=== PATIENT | female | born 1955 | race Caucasian/White ===

== ENCOUNTER → 2016-07-11 | Outpatient (REF) | payer BC ==
[~2016-07-11] MED LIST: CALCIUM PO; CENT1TAB PO; COQ-200C PO; COUM2.5T11 PO; FLON1SPR; IBUP600T26 PO; LISI10TA4 PO; LORT5TAB PO; MELA0.02 PO; SERT-138 PO; SIMV5TAB4 PO; SLOW MAG PO; TUMERIC/CURCUMIN PO; TYLE325T5 PO; VITA200015 PO; VITA500C10 PO; [UNRECOGNIZED DRUG - OTHER] PO
[2016-07-11 17:45] LABS: BACTERIA, URINE NONE SEEN; HYALINE CAST, URINE NONE SEEN /lpf (0-1); MICROSCOPIC EXAM PERFORMED; SQUAMOUS EPITHELIAL CELL URINE SMALL AMOUNT /hpf (SMALL AMT); WBC, URINE 0-1 /hpf (0-3)
== END ==
LOC: M LAB REF 16:10
PROVIDERS: ATTEND Family Medicine
DX: R31.9 Hematuria, unspecified (principal)

== ENCOUNTER → 2017-02-01 | Outpatient (CLI) | payer BC ==
[~2017-02-01] MED LIST changes: +CONRAY-43 43% 50ML VIAL (Q9960) As Ordered ONE; -COUM2.5T11 PO; +COUM2.5T17 PO; +IBUP-1022 PO; -IBUP600T26 PO; +LIDOCAINE 1% MDV 20ML VIAL As Ordered ONE; -MELA0.02 PO; +MELA3TAB49 PO; +methylPREDNISolone SUSP 40 MG/ML (DEPO-medrol) VIAL (J1030) As Ordered ONE
--- NOTE | 2017-02-01 19:25 | REP ---
Right hip injection The procedure was performed under the direct supervision of Dr. Becerra. The benefits and risks including but not limited to pain infection and bleeding and anaphylaxis were explained to the patient and informed consent was obtained. The right femoral neck was localized using fluoroscopic guidance. The skin was prepped and draped in a sterile fashion. 1% lidocaine was used as a local anesthetic. Using fluoroscopic guidance a 22-gauge spinal needle was inserted and advanced to the femoral neck. 0.5 ml of Conray 43 was injected to verify placement. 5 ml of a solution containing 3 ml of 1% Xylocaine and 2 ml of Depo Medrol 40 mg was injected. The needle was then removed. The patient tolerated the procedure well and there were no immediate complications. 1 seconds of fluoro time was utilized for this procedure. Reviewed by RICARDO Davila 02/01/2017 05:26 PSigned by Ruiz Becerra MD 02/01/2017 07:15 P
== END ==
LOC: M RADPRO 09:36
PROVIDERS: ATTEND Physician Assistant
DX: M16.11 Unilateral primary osteoarthritis, right hip (principal)
CPT/HCPCS: 20610; 77002; J1030; Q9960

== ENCOUNTER → 2017-04-23 | Outpatient (CLI) | payer BC ==
[2017-04-23 10:17] LABS: BASO % 0.7 % (0.0-1.0); HEMATOCRIT 39.3 % (36.0-47.0); IMMATURE GRANULOCYTE % 0.2 % (0-0); LYMPH # 1.3 10^3/uL (1.5-4.5); LYMPH % 29.1 % (24.0-44.0); MEAN CORPUSCULAR HEMOGLOBIN 31.2 pg (27.0-33.0); MEAN CORPUSCULAR HGB CONC 33.1 g/dl (32.0-36.5); MEAN CORPUSCULAR VOLUME 94.2 fl (80.0-96.0); MONO # 0.4 10^3/uL (0.0-0.8); MONO % 8.8 % (0.0-5.0); NEUTROPHILS # 2.7 10^3/uL (1.8-7.7); NEUTROPHILS % 61.2 % (36.0-66.0); PLATELET COUNT, AUTOMATED 290 10^3/uL (150-450); RED BLOOD COUNT 4.17 10^6/uL (4.00-5.40); RED CELL DISTRIBUTION WIDTH 13.2 % (11.5-14.5); WHITE BLOOD COUNT 4.3 10^3/uL (4.0-10.0)
[2017-04-23 10:46] LABS: ALBUMIN/GLOBULIN RATIO 1.43 (1.00-1.93); ALKALINE PHOSPHATASE 82 U/L (45-117); ALT/SGPT 14 U/L (12-78); ANION GAP 8 MEQ/L (8-16); AST/SGOT 12 U/L (7-37); BILIRUBIN,TOTAL 0.4 MG/DL (0.2-1.0); BLOOD UREA NITROGEN 18 MG/DL (7-18); CALCIUM LEVEL 8.6 MG/DL (8.8-10.2); CARBON DIOXIDE LEVEL 29 MEQ/L (21-32); CHLORIDE LEVEL 104 MEQ/L (98-107); CHOLESTEROL LEVEL 233 MG/DL (<200); CHOLESTEROL RISK RATIO 2.678 (<5); CREATININE FOR GFR 0.65 MG/DL (0.55-1.02); FREE T4 0.85 NG/DL (0.76-1.46); GLOMERULAR FILTRATION RATE > 60.0 (>45); GLUCOSE, FASTING 94 MG/DL (80-110); HDL CHOLESTEROL 87 MG/DL (>40); NON-HDL-C 146 MG/DL; POTASSIUM SERUM 4.2 MEQ/L (3.5-5.1); SODIUM LEVEL 141 MEQ/L (136-145); TOTAL PROTEIN 6.8 GM/DL (6.4-8.2); TRIGLYCERIDES LEVEL 80 MG/DL (<150)
== END ==
LOC: M LAB 09:25
DX: E78.2 Mixed hyperlipidemia (principal)
CPT/HCPCS: 84443

== ENCOUNTER → 2017-07-22 | Outpatient (REF) | payer BC ==
[2017-07-22 13:49] LABS: CHOLESTEROL LEVEL 192 MG/DL (<200); CHOLESTEROL RISK RATIO 2.341 (<5); HDL CHOLESTEROL 82 MG/DL (>40); NON-HDL-C 110 MG/DL; TRIGLYCERIDES LEVEL 50 MG/DL (<150)
== END ==
LOC: M LABNEURO 09:33
DX: E78.2 Mixed hyperlipidemia (principal)
CPT/HCPCS: 80061

== ENCOUNTER → 2018-02-17 | Outpatient (REF) | payer BC ==
[2018-02-17 12:39] LABS: BASO % 0.9 % (0.0-1.0); HEMOGLOBIN 12.4 g/dl (12.0-15.5); LYMPH # 1.2 10^3/uL (1.5-4.5); LYMPH % 26.4 % (24.0-44.0); MEAN CORPUSCULAR HEMOGLOBIN 31.1 pg (27.0-33.0); MEAN CORPUSCULAR HGB CONC 32.6 g/dl (32.0-36.5); MEAN CORPUSCULAR VOLUME 95.2 fl (80.0-96.0); MONO # 0.4 10^3/uL (0.0-0.8); MONO % 9.1 % (0.0-5.0); NEUTROPHILS # 2.9 10^3/uL (1.8-7.7); NEUTROPHILS % 63.6 % (36.0-66.0); PLATELET COUNT, AUTOMATED 274 10^3/uL (150-450); RED BLOOD COUNT 3.99 10^6/uL (4.00-5.40); RED CELL DISTRIBUTION WIDTH 13.2 % (11.5-14.5); WHITE BLOOD COUNT 4.5 10^3/uL (4.0-10.0)
[2018-02-17 13:30] LABS: ALBUMIN 4.1 GM/DL (3.2-5.2); ALBUMIN/GLOBULIN RATIO 1.52 (1.00-1.93); ALKALINE PHOSPHATASE 73 U/L (45-117); ALT/SGPT 25 U/L (12-78); ANION GAP 6 MEQ/L (8-16); AST/SGOT 15 U/L (7-37); BILIRUBIN,TOTAL 0.5 MG/DL (0.2-1.0); BLOOD UREA NITROGEN 24 MG/DL (7-18); CALCIUM LEVEL 8.7 MG/DL (8.8-10.2); CARBON DIOXIDE LEVEL 26 MEQ/L (21-32); CHLORIDE LEVEL 108 MEQ/L (98-107); CHOLESTEROL LEVEL 201 MG/DL (<200); CHOLESTEROL RISK RATIO 2.421 (<5); CREATININE FOR GFR 0.69 MG/DL (0.55-1.30); FREE T4 0.82 NG/DL (0.76-1.46); GLOMERULAR FILTRATION RATE > 60.0 (>45); GLUCOSE, FASTING 92 MG/DL (70-100); HDL CHOLESTEROL 83 MG/DL (>40); LDL CHOLESTEROL 106 MG/DL (<100); NON-HDL-C 118 MG/DL; POTASSIUM SERUM 4.6 MEQ/L (3.5-5.1); SODIUM LEVEL 140 MEQ/L (136-145); TOTAL PROTEIN 6.8 GM/DL (6.4-8.2); TRIGLYCERIDES LEVEL 62 MG/DL (<150)
== END ==
LOC: M LABDRAW1 11:42
DX: I10 Essential (primary) hypertension (principal); E78.2 Mixed hyperlipidemia
CPT/HCPCS: 84443

== ENCOUNTER → 2018-04-17 | Outpatient (CLI) | payer BC ==
[~2018-04-17] MED LIST changes: -CONRAY-43 43% 50ML VIAL (Q9960) As Ordered ONE; +COQ1200C2 PO; +FLAX1300 PO; -LIDOCAINE 1% MDV 20ML VIAL As Ordered ONE; +MOTR200T44 PO; +SIMV40TA2 PO; +SIMV5TAB12 PO; -SIMV5TAB4 PO; +TYLE650T35 PO; -methylPREDNISolone SUSP 40 MG/ML (DEPO-medrol) VIAL (J1030) As Ordered ONE
[2018-04-17 08:27] LABS: HEMATOCRIT 39.4 % (36.0-47.0); HEMOGLOBIN 12.6 g/dl (12.0-15.5); MEAN CORPUSCULAR HEMOGLOBIN 30.4 pg (27.0-33.0); MEAN CORPUSCULAR VOLUME 95.2 fl (80.0-96.0); PLATELET COUNT, AUTOMATED 270 10^3/uL (150-450); RED BLOOD COUNT 4.14 10^6/uL (4.00-5.40); WHITE BLOOD COUNT 5.7 10^3/uL (4.0-10.0)
--- NOTE | 2018-04-17 08:32 | ECGEPIP ---
Stationary ECG Study [facility] Test Date: 2018-04-17 Pat Name: JAREK VALDOVINOS Department: Room: - Gender: F Supervisor [employer]: : 1955 Requested By: Justin Tuttle @ [facility] Order Number: [id number] Reading MD: Katja Pratt Measurements Intervals [place] Rate: 65 P: 47 ME: 175 QRS: -32 QRSD: 86 T: 28 QT: 381 QTc: 398 Interpretive Statements SINUS RHYTHM LEFT AXIS DEVIATION NEW C/W 03/21/15 LAE Electronically Signed On 04-17-2018 8:31:52 EST by Katja Pratt
[2018-04-17 08:50] LABS: INR 0.94; PROTHROMBIN TIME 12.7 SECONDS (12.1-14.4)
--- NOTE | 2018-04-17 09:01 | REP ---
Chest x-ray: Two views. History: Preoperative testing. Comparison study: March 21, 2015. Findings: The lungs are well inflated and clear. Pleural angles are sharp. Heart size is normal. No significant bony abnormality. Pulmonary vasculature is not increased. Impression: No active disease. Electronically Signed by Ruiz Becerra MD 04/17/2018 11:49 A
[2018-04-17 09:35] LABS: ALT/SGPT 19 U/L (12-78); BILIRUBIN,TOTAL 0.5 MG/DL (0.2-1.0); BLOOD UREA NITROGEN 18 MG/DL (7-18); CARBON DIOXIDE LEVEL 28 MEQ/L (21-32); CHLORIDE LEVEL 104 MEQ/L (98-107); CREATININE FOR GFR 0.84 MG/DL (0.55-1.30); GLOMERULAR FILTRATION RATE > 60.0 (>45); GLUCOSE, FASTING 88 MG/DL (70-100); POTASSIUM SERUM 4.7 MEQ/L (3.5-5.1); SODIUM LEVEL 139 MEQ/L (136-145); TOTAL PROTEIN 6.8 GM/DL (6.4-8.2)
[2018-04-17 09:53] LABS: ERYTHROCYTE SEDIMENTATION RATE 12 mm/hr (0-30)
== END ==
LOC: M LAB 08:06
PROVIDERS: ATTEND Orthopaedic Surgery
DX: Z01.818 Encounter for other preprocedural examination (principal); R03.0 Elevated blood-pressure reading, without diagnosis of hypertension; M16.11 Unilateral primary osteoarthritis, right hip

== ENCOUNTER 2018-05-12 06:10 | Inpatient (IN) | payer BC ==
--- NOTE | 2018-05-02 08:47 | HPE ---
DATE OF ADMISSION: 05/12/2018 ATTENDING PHYSICIAN: Dr. Parag Webb CHIEF COMPLAINT: Right hip pain and stiffness. HISTORY This is a pleasant 62-year-old female patient with progressively worsening right hip pain and stiffness. She has failed to improve with conservative management and has been consented for elective right hip total arthroplasty by Dr. Webb. Right hip x-rays are notable for severe degenerative changes of the right hip. ALLERGIES: 1. PENICILLIN. CURRENT MEDICATIONS: - simvastatin 40 mg one by mouth daily - lisinopril 10 mg one by mouth daily - melatonin 3 mg two tablets at night - flaxseed oil 1000 mg one by mouth daily - sertraline HCL 100 mg one by mouth at bedtime. PAST MEDICAL HISTORY: Mixed hyperlipidemia. Essential hypertension. Generalized anxiety disorder. Insomnia. PAST SURGICAL HISTORY: Forde's cyst removal 4 years old left leg. Tonsillectomy. Appendectomy. Total hysterectomy. Left hip total arthroplasty. FAMILY HISTORY: Noncontributory. SOCIAL HISTORY: Patient has never smoked and occasionally consumes alcohol. REVIEW OF SYSTEMS: Denies fever, chills, chest pain, shortness breath, nausea, vomiting, diarrhea. Reports persistent pain in the right hip with weightbearing activities. Denies recent upper respiratory or urinary tract infections. PHYSICAL EXAMINATION: Vital signs: Height 5 feet 8 inches, weight 195.8 pounds, temperature 99, blood pressure 148/70, pulse 68, respirations 16. Well-developed, well-nourished in no apparent distress. Normocephalic, atraumatic. Neck is supple with no lymphadenopathy or jugular venous distention (JVD). S1-S2 auscultated with no murmurs, rubs or gallops. Lungs clear to auscultation bilaterally. Abdomen soft, nontender. Right hip with discomfort through range of motion. No overlying skin abnormalities rashes, erythema, warmth or redness of ongoing infection. Distal neurovascular status intact in this extremity. EKG noted for sinus rhythm with left axis deviation. Chest x-ray with no acute cardiopulmonary process. LABORATORY DATA: ESR 12. White blood count 5.7, red blood count 4.14, hemoglobin 12.6, hematocrit 39.4, BUN 18, creatinine 0.84, PT 12.7, INR 0.94. Preoperative medical optimization performed by Dr. Lauren Jo, and reviewed on chart today. IMPRESSION: Symptomatic osteoarthritis of the right hip. PLAN: Consented for right total hip arthroplasty by Dr. Webb.
[~2018-05-12] VITALS: Ht 175.3 cm; Wt 89.4 kg
[2018-05-12] VITALS (9 sets, daily range): BP systolic 91–159; BP diastolic 50–78
[~2018-05-12 06:10] MED LIST changes: +ACETAMINOPHEN 500 MG TAB PO ONE; +LR 1,000 ML IV ONE
[2018-05-12] MEDS ORDERED: MUPI2OI (06:42)
[2018-05-12] MEDS: EPINEPHrine INJ 1 MG/ML 1ML AMP As Ordered ONE ×2 (07:04→08:15)
[2018-05-12] MEDS ORDERED: CLINDAMYCIN INJ 900MG/6ML VIAL As Ordered ONE (07:04)
[2018-05-12] MEDS ORDERED: LIDOCAINE 2% INJ 100 MG/5 ML SDV (FOR ANES.) As Ordered ONE (07:15)
[2018-05-12] MEDS ORDERED: PROPOFOL 200 MG/20 ML VIAL As Ordered ONE ×3 (07:15→09:29)
[2018-05-12] MEDS ORDERED: MIDAZOLAM INJ 2 MG/2 ML VIAL (J2250) As Ordered ONE (07:16)
[2018-05-12] MEDS ORDERED: fentaNYL 100 MCG/2 ML INJECTION (J3010) As Ordered ONE (07:17)
[2018-05-12] MEDS ORDERED: BUPIVACAINE/DEXTROSE 0.75% 2 ML AMP As Ordered ONE (07:17)
[2018-05-12] MEDS ORDERED: KETAMINE HCL 200 MG/20 ML VIAL As Ordered ONE (07:23)
[2018-05-12] MEDS ORDERED: ePHEDrine SULFATE 25 MG/5 ML(5MG/ML) SYRINGE As Ordered ONE (08:49)
[2018-05-12] MEDS: VITAMIN D 1,000 INTERNATIONAL UNITS TABLET PO SCH (09:00)
[2018-05-12] MEDS: MULTIVITAMINS/MINERALS THERAP 1 TAB PO SCH (09:00)
[2018-05-12] MEDS ORDERED: MORPHINE 1MG/ML IN 0.9% NACL 100ML IV BAG As Ordered ONE (10:12)
[2018-05-12] MEDS ORDERED: LR 1,000 ML IV SCH (10:30)
[2018-05-12] MEDS ORDERED: NALOXONE INJ 0.4 MG/1 ML VIAL (J2310) IV PRN (10:30)
[2018-05-12] MEDS ORDERED: EPIDURAL/PCA KEYS XX PRN (10:30)
[2018-05-12] MEDS ORDERED: MORPHINE 1MG/ML IN 0.9% NACL 100ML IV BAG IV PRN (10:30)
[2018-05-12] MEDS: LR 1,000 ML IV SCH ×2 (10:30→23:00)
[2018-05-12] MEDS ORDERED: MEPERIDINE INJ 25 MG/ML VIAL (J2175) IV PRN (10:30)
[2018-05-12] MEDS ORDERED: fentaNYL 100 MCG/2 ML INJECTION (J3010) IV PRN (10:30)
[2018-05-12] MEDS ORDERED: METOCLOPRAMIDE INJ 10MG/2ML VIAL (J2765) IV PRN (10:30)
[2018-05-12] MEDS ORDERED: ONDANSETRON 4MG/2ML VIAL (J2405) IV PRN ×2 (10:30)
[2018-05-12] MEDS ORDERED: NALBUPHINE HCL 10 MG/ML AMP (J2300) IV PRN (10:30)
[2018-05-12] MEDS ORDERED: PERCOCET 5MG/325MG TAB PO PRN (10:30)
[2018-05-12] MEDS ORDERED: FLEET ENEMA PR PRN (10:30)
[2018-05-12] MEDS ORDERED: ACETAMINOPHEN TAB 650MG DOSE (2X325MG) PO PRN (10:30)
[2018-05-12] MEDS ORDERED: diphenhydrAMINE INJ 50MG/ML VIAL (J1200) IV PRN (10:30)
--- NOTE | 2018-05-12 11:18 | REP ---
RIGHT HIP, TWO VIEWS: HISTORY: Hip replacement. The patient is status post right total hip replacement. There is no acute fracture or dislocation. Subcutaneous air and surgical jannette are present in the overlying soft tissue. IMPRESSION: The patient is status post right total hip replacement. There is anatomic alignment. Electronically Signed by Je Abbasi MD 05/12/2018 11:23 A
[2018-05-12] MEDS ORDERED: NORCO, ANEXSIA 5/325MG TABLET (HYDROcodone/ACETAMINOPHEN) PO PRN (12:30)
[2018-05-12] MEDS ORDERED: PROMETHAZINE INJ 25 MG/ML VIAL (J2550) IV PRN (12:30)
[2018-05-12] MEDS: NORCO, ANEXSIA 5/325MG TABLET (HYDROcodone/ACETAMINOPHEN) PO PRN ×3 (12:40→21:27)
[2018-05-12] MEDS: CYCLOBENZAPRINE 10 MG TAB PO SCH ×2 (13:40→21:26)
[2018-05-12] MEDS ORDERED: FLUTICASONE PROP 0.05% NASAL SPRAY 16 GM (FLONASE) PRN (14:00)
--- NOTE | 2018-05-12 15:06 | CR ---
DATE OF CONSULTATION: 05/12/2018 52-year-old female with a past medical history of hypertension, hyperlipidemia, right hip osteoarthritis, who presented for elective right total hip replacement, done successfully by Dr. Webb today. Reason for medical consultation is postoperative medical management. At this time, the patient is in pain, 8 out of 10, which she will be given IV morphine shortly for. Otherwise, she denies any chest pain, shortness of breath, abdominal pain, nausea, vomiting, vertigo, headache. PAST MEDICAL HISTORY: 1. Hypertension. 2. Hyperlipidemia. 3. History of restless leg syndrome. 4. Anxiety disorder. 5. Insomnia. PAST SURGICAL HISTORY: 1. Forde's cyst removed 4 years ago. 2. Tonsillectomy. 3. Appendectomy. 4. Total hysterectomy. 5. Left hip total arthroplasty. ALLERGIES: PENICILLIN. FAMILY HISTORY: Noncontributory. SOCIAL HISTORY: The patient denies alcohol, tobacco or illicit drug use. MEDICATIONS: At home: - Tylenol 650 mg every 8 hours as needed - cholecalciferol 2000 units orally daily - Coenzyme Q 200 mg orally daily - flaxseed oil one capsule orally daily - fluticasone 50 mcg intranasally daily as needed - ibuprofen 400 mg orally every 4 hours as needed - Lisinopril 10 mg orally daily - melatonin 3 mg orally at bedtime - multivitamin one tablet orally daily - sertraline 100 mg orally at bedtime - simvastatin 40 mg orally daily REVIEW OF SYSTEMS: Negative for all ten major systems except what is mentioned in the history of present illness. VITAL SIGNS: Blood pressure 116/62, heart rate is 76 and regular, respiratory rate 20, temperature 98, oxygen saturation is 100% on 2 liters nasal cannula. Head is atraumatic, normocephalic. Neck is supple with no jugular venous distention (JVD). Lungs are clear to auscultation. S1, S2 audible. No murmurs appreciated. Abdomen is soft. Positive bowel sounds. No pedal edema. Skin examination: Clean surgical wound. Neurologic examination, the patient is awake, alert and oriented times three. LABORATORIES: There are no laboratories to review at this time. IMPRESSION: 1. Right hip replacement. 2. Hypertension. 3. Hyperlipidemia. PLAN: The patient at this time is to continue IV narcotics for pain management. I will defer the pain management to orthopedics. The patient has no history of congestive heart failure (CHF), so if the blood pressure is low normal then it is perfectly fine to give 500 mL bolus to aid in the blood pressure in order to give narcotics for the pain. I have reconciled all of her medications and there are no further recommendations at this time. We will continue following alongside orthopedics.
[2018-05-12] MEDS: SIMVASTATIN 40 MG TAB PO SCH (21:26)
[2018-05-12] MEDS: SERTRALINE 100 MG TAB PO SCH (21:26)
[2018-05-12] MEDS: ONDANSETRON 4 MG TAB (S0181) PO PRN (22:38)
[2018-05-13] MEDS: NORCO, ANEXSIA 5/325MG TABLET (HYDROcodone/ACETAMINOPHEN) PO PRN ×5 (01:51→22:15)
[2018-05-13] MEDS: ONDANSETRON 4 MG TAB (S0181) PO PRN (04:39)
[2018-05-13 06:00] VITALS: BP 163/74
[2018-05-13] MEDS: CYCLOBENZAPRINE 10 MG TAB PO SCH ×3 (06:33→22:14)
[2018-05-13 06:35] LABS: HEMATOCRIT 25.5 % (36.0-47.0); HEMOGLOBIN 8.5 g/dl (12.0-15.5); MEAN CORPUSCULAR HEMOGLOBIN 31.1 pg (27.0-33.0); MEAN CORPUSCULAR HGB CONC 33.3 g/dl (32.0-36.5); MEAN CORPUSCULAR VOLUME 93.4 fl (80.0-96.0); PLATELET COUNT, AUTOMATED 194 10^3/uL (150-450); RED BLOOD COUNT 2.73 10^6/uL (4.00-5.40); WHITE BLOOD COUNT 6.6 10^3/uL (4.0-10.0)
[2018-05-13 06:53] LABS: BLOOD UREA NITROGEN 17 MG/DL (7-18); CALCIUM LEVEL 7.8 MG/DL (8.8-10.2); CARBON DIOXIDE LEVEL 25 MEQ/L (21-32); CHLORIDE LEVEL 106 MEQ/L (98-107); CREATININE FOR GFR 0.72 MG/DL (0.55-1.30); GLOMERULAR FILTRATION RATE > 60.0 (>45); GLUCOSE, FASTING 163 MG/DL (70-100); SODIUM LEVEL 138 MEQ/L (136-145)
[2018-05-13] MEDS ORDERED: HYDR-3713 PO (08:38)
[2018-05-13] MEDS ORDERED: XARE10TA PO (08:38)
[2018-05-13] MEDS: MOM 30ML SUSPENSION UDC PO SCH (08:50)
[2018-05-13] MEDS: MULTIVITAMINS/MINERALS THERAP 1 TAB PO SCH (08:50)
[2018-05-13] MEDS: MIRALAX *UNIT DOSE* 17GM PACKET PO SCH (08:50)
[2018-05-13] MEDS: SENOKOT S TAB PO SCH ×2 (08:50→20:08)
[2018-05-13] MEDS: VITAMIN D 1,000 INTERNATIONAL UNITS TABLET PO SCH (08:50)
[2018-05-13] MEDS: LISINOPRIL 10 MG TAB PO SCH (08:50)
--- NOTE | 2018-05-13 09:45 | RO ---
DATE OF PROCEDURE: 05/12/2018 PREOPERATIVE DIAGNOSIS: Right hip osteoarthritis. POSTOPERATIVE DIAGNOSIS: Right hip osteoarthritis. PROCEDURE: Right total hip arthroplasty using a size 56 Gription sector cup with a 36 AltrX liner and a size 8 Mounds standard offset stem with a 1.5 neck and a 36 mm ceramic head. SURGEON: Justin Webb MD LUNG PULLER: BREANNA Blanca ANESTHESIA: Spinal. ESTIMATED BLOOD LOSS: 200 mL. SPECIMENS: Femoral head. COMPLICATIONS: None. Prosthesis was made by [employer]; it was Mounds stem. DESCRIPTION OF PROCEDURE: Antibiotics were given intravenously preoperatively, and a successful spinal anesthetic was induced. She was placed in a lateral decubitus position with Ronnie hip positioner, down leg well padded, especially the peroneal nerve. Axillary roll was utilized. The right hip area was then carefully prepped and draped in the usual sterile fashion. After appropriate time-out, a longitudinal incision was made for a direct anterolateral approach to the hip. Bovie cautery was used to coagulate crossing vessels. We dissected down to the deep tensor fascia, which was divided in line with the skin incision. We split the gluteus medius in the anterior one-third/posterior two-third junction and then capsulotomy performed. She had a large ring osteophyte capturing the femoral head, making it unable to dislocate. I first used the osteotome to remove some of the rim osteophytes, but we were unsuccessful at dislocating the hip; thus, a femoral neck osteotomy was performed in situ and then we were able to externally rotate the hip. Piriformis fossa was identified and starter reamer placed, followed by the canal finding reamer, then the lateralizing reamer. Then we reamed up to a size 8. We shortened the femoral neck and adjusted the cup a bit at this point using the template and then broached up to a size 8. We then exposed the acetabulum and then began reaming with a 48, advancing up to 55 eventually. There was a large rim osteophyte noted, and the bone was very sclerotic and hard; no cartilage was remaining in the acetabulum. She already was down to the teardrop; thus, I did not deepen any more, just expanded. Copiously irrigated. The trial 56 fit nicely; thus, a real 56 Gription cup sector with sector holes was placed just in case we had to supplement with screw fixation. The cup was placed using the alignment guide, help set the version and abduction, and she had good fixation. Central hole eliminator was placed. Then the real liner placed after copiously irrigating. We then trialed with a number 8 broach, and the 1.5 standard offset fit nicely with minimal telescoping. She was very stable to flexion, internal rotation and extension, external rotation. We, thus, removed the broach and irrigated out the femoral canal copiously, placed the real #8 standard offset stem, dried the trunnion, placed the 36 ceramic head with a 1.5 neck, and then reduced the hip. Irrigated again. Closed the capsule and the gluteus minimus back anatomically with interrupted #1 PDS suture. The gluteus medius was closed with interrupted #1 PDS sutures. Tensor fascia was closed with a combination of #1 PDS suture and a running #1 Stratafix. Irrigated between layers. Closed the deep subdermal tissues with interrupted #2-0 PDS suture. Skin was closed with jannette, covered with an Optifoam dry sterile bulky dressing. She was then turned supine and then transferred to the recovery room in stable condition. There were no intraoperative complications. Dru Johnnybrandan was critical to the success of this surgery. This was quite a difficult operation given the osteophytes, difficulty dislocating. He helped place the leg into the leg bag, in and out, helped to dislocate and then reduce the hip several times, applied appropriate soft tissue retraction, helped close the wound, amongst many other tasks to help me perform the operation smoothly and efficiently. ADDENDUM: Mr. Pradhan, my assistant professor sculpture, was critical to the success of this very difficult procedure by helping to manipulate the hip, which we had to do an osteotomy in order to dislocate in the first place; helped to put it into the leg bag, back out of the leg bag several times; helped with appropriate soft tissue retraction; helped to close the wound and also prepare the patient, amongst many other tasks to help me perform the operation smoothly, efficiently, and safely. Addendum dictated: KITAV 05/13/2018 1432 Addendum transcribed: phil 05/13/2018 1434
[2018-05-13 14:00] VITALS: BP 126/67
[2018-05-13 14:17] LABS: HEMATOCRIT 29.3 % (36.0-47.0); HEMOGLOBIN 9.5 g/dl (12.0-15.5)
--- NOTE | 2018-05-13 15:55 | IPNPDOC ---
Subjective Date Seen The patient was seen on 05/13/18. Subjective Chief Complaint/HPI Patient seen and examined at bedside. Reports that her pain is well controlled at this time. Denies any acute complaints at this time. Objective Physical Examination General Exam: Positive: Alert, Cooperative, No Acute Distress ENT Exam: Positive: Atraumatic, Mucous membr. moist/pink Neck Exam: Negative: JVD Chest Exam: Positive: Clear to auscultation, Normal air movement Heart Exam: Positive: Rate Normal, Normal S1, Normal S2 Abdomen Exam: Positive: Soft; Negative: Tenderness Extremity Exam: Positive: Other (right hip noted to have a postoperative scar. Surgical site noted to be clean, dry, intact. Extremity neurovascularly intact distally.) Psych Exam: Positive: Oriented x 3 Assessment /Plan Plan/VTE VTE Prophylaxis Ordered?: Yes Plan Right Hip Osteoarthritis s/p Total Hip Arthroplasty on 05/12 Pain mgmt, Anticoagulation, and Post-operative surgical mgmt as per Ortho We will cont to f/u recommendations Normocytic anemia Likely 2/2 intraoperative blood loss, and hemodilution combination Patient asymptomatic Repeat hemoglobin 9.5 No indication for transfusion at this time We will continue to monitor Hypertension Cont Lisinopril Dyslipidemia Continue statin Anxiety/depression Continued sertraline, Flexeril Vitamin D deficiency Continue vitamin D supplementation DVT prophylaxis On Xarelto VS, I&O, 24H, Fishbone Vital Signs/I&O Vital Signs Date Time Temp Pulse Resp B/P (MAP) Pulse Ox O2 Delivery O2 Flow Rate FiO2 05/13/18 14:00 99.2 88 18 126/67 (86) 94 Room Air 05/12/18 20:00 2.0 I&O- Last 24 Hours up to 6 AM 05/13/18 05:59 Intake Total 1490 ml Output Total 725 ml Balance 765 ml Laboratory Data 24H LABS Laboratory Tests 2 05/13/18 06:11: Nucleated Red Blood Cells % (auto) 0.0, Anion Gap 7L, Glomerular Filtration Rate > 60.0, Blood Urea Nitrogen 17, Creatinine 0.72, Sodium Level 138, Potassium Level 4.0, Chloride Level 106, Carbon Dioxide Level 25, Calcium Level 7.8L CBC/BMP Laboratory Tests 05/13/18 06:11 Red Blood Count 2.73 L, Mean Corpuscular Volume 93.4, Mean Corpuscular Hemoglobin 31.1, Mean Corpuscular Hemoglobin Concent 33.3, Red Cell Distribution Width 13.2, Calcium Level 7.8 L 05/13/18 13:57 ANSON JONES MD May 13, 2018 15:55
[2018-05-13] MEDS ORDERED: RIVAROXABAN 10 MG TAB (XARELTO) PO SCH (18:00)
[2018-05-13] MEDS: SIMVASTATIN 40 MG TAB PO SCH (20:09)
[2018-05-13] MEDS: SERTRALINE 100 MG TAB PO SCH (20:09)
[2018-05-14 06:00] VITALS: BP 150/74
[2018-05-14] MEDS: NORCO, ANEXSIA 5/325MG TABLET (HYDROcodone/ACETAMINOPHEN) PO PRN ×2 (06:01→10:27)
[2018-05-14] MEDS: CYCLOBENZAPRINE 10 MG TAB PO SCH ×2 (06:01→14:31)
[2018-05-14 06:48] LABS: BLOOD UREA NITROGEN 13 MG/DL (7-18); CALCIUM LEVEL 7.8 MG/DL (8.8-10.2); CARBON DIOXIDE LEVEL 27 MEQ/L (21-32); CHLORIDE LEVEL 106 MEQ/L (98-107); GLOMERULAR FILTRATION RATE > 60.0 (>45); GLUCOSE, FASTING 110 MG/DL (70-100); POTASSIUM SERUM 3.8 MEQ/L (3.5-5.1); SODIUM LEVEL 139 MEQ/L (136-145)
[2018-05-14 06:51] LABS: HEMATOCRIT 25.2 % (36.0-47.0); HEMOGLOBIN 8.1 g/dl (12.0-15.5); MEAN CORPUSCULAR HEMOGLOBIN 30.9 pg (27.0-33.0); MEAN CORPUSCULAR HGB CONC 32.1 g/dl (32.0-36.5); MEAN CORPUSCULAR VOLUME 96.2 fl (80.0-96.0); PLATELET COUNT, AUTOMATED 173 10^3/uL (150-450); RED BLOOD COUNT 2.62 10^6/uL (4.00-5.40)
[2018-05-14 09:26] VITALS: BP 150/74
[2018-05-14] MEDS: SENOKOT S TAB PO SCH (09:26)
[2018-05-14] MEDS: MOM 30ML SUSPENSION UDC PO SCH (09:26)
[2018-05-14] MEDS: MULTIVITAMINS/MINERALS THERAP 1 TAB PO SCH (09:26)
[2018-05-14] MEDS: LISINOPRIL 10 MG TAB PO SCH (09:26)
[2018-05-14] MEDS: VITAMIN D 1,000 INTERNATIONAL UNITS TABLET PO SCH (09:26)
[2018-05-14] MEDS: MIRALAX *UNIT DOSE* 17GM PACKET PO SCH (09:26)
--- NOTE | 2018-05-14 11:15 | IPNPDOC ---
Subjective Date Seen The patient was seen on 05/14/18. Subjective Chief Complaint/HPI Patient seen and examined at bedside. No acute overnight events noted. The patient's hemoglobin was noted to be 8.1 this morning. No overt bleeding noted. Patient denies any complaints of lightheadedness, dizziness, chest pain, shortness of breath, or palpitations. We will repeat a hemoglobin level at noon and transfuse a unit of packed red blood cells if indicated. Objective Physical Examination General Exam: Positive: Alert, Cooperative, No Acute Distress ENT Exam: Positive: Atraumatic, Mucous membr. moist/pink Neck Exam: Negative: JVD Chest Exam: Positive: Clear to auscultation, Normal air movement Heart Exam: Positive: Rate Normal, Normal S1, Normal S2 Abdomen Exam: Positive: Soft; Negative: Tenderness Extremity Exam: Positive: Other (right hip noted to have a postoperative scar. Surgical site noted to be clean, dry, intact. Extremity neurovascularly intact distally.) Psych Exam: Positive: Oriented x 3 Assessment /Plan Plan/VTE VTE Prophylaxis Ordered?: Yes Plan Right Hip Osteoarthritis s/p Total Hip Arthroplasty on 05/12 Pain mgmt, Anticoagulation, and Post-operative surgical mgmt as per Ortho We will cont to f/u recommendations Normocytic anemia Likely 2/2 intraoperative blood loss, and hemodilution combination Patient asymptomatic Repeat hemoglobin ordered for noon--will transfuse prbc's if indicated We will continue to monitor Hypertension Cont Lisinopril Dyslipidemia Continue statin Anxiety/depression Continued sertraline, Flexeril Vitamin D deficiency Continue vitamin D supplementation DVT prophylaxis On Xarelto VS, I&O, 24H, Fishbone Vital Signs/I&O Vital Signs Date Time Temp Pulse Resp B/P (MAP) Pulse Ox O2 Delivery O2 Flow Rate FiO2 05/14/18 10:57 20 05/14/18 09:26 150/74 05/14/18 06:31 Room Air 05/14/18 06:00 98.5 90 91 05/13/18 06:00 2.0 I&O- Last 24 Hours up to 6 AM 05/14/18 05:59 Intake Total 840 ml Output Total 950 ml Balance -110 ml Laboratory Data 24H LABS Laboratory Tests 2 05/14/18 05:28: Nucleated Red Blood Cells % (auto) 0.0, Anion Gap 6L, Glomerular Filtration Rate > 60.0, Blood Urea Nitrogen 13, Creatinine 0.60, Sodium Level 139, Potassium Level 3.8, Chloride Level 106, Carbon Dioxide Level 27, Calcium Level 7.8L CBC/BMP Laboratory Tests 05/13/18 13:57 05/14/18 05:28 Red Blood Count 2.62 L, Mean Corpuscular Volume 96.2 H, Mean Corpuscular Hemoglobin 30.9, Mean Corpuscular Hemoglobin Concent 32.1, Red Cell Distribution Width 13.4, Calcium Level 7.8 L ANSON JONES MD May 14, 2018 11:15
[2018-05-14 12:12] LABS: HEMATOCRIT 25.9 % (36.0-47.0); HEMOGLOBIN 8.2 g/dl (12.0-15.5)
[2018-05-14 14:00] VITALS: BP 119/56
== END 2018-05-14 16:45 | disposition home or self-care (01) | DRG 301 ==
LOC: M OR 06:10 → M MS5PR 10:50
PROVIDERS: ADMIT Orthopaedic Surgery; ATTEND Orthopaedic Surgery
PROC: 0SR904Z Replacement of Right Hip Joint with Ceramic on Polyethylene Synthetic Substitute, Open Approach (ICD-10-PCS; principal; 2018-05-12 07:30)
DX: M16.11 Unilateral primary osteoarthritis, right hip (principal); Z96.642 Presence of left artificial hip joint; I10 Essential (primary) hypertension; E78.2 Mixed hyperlipidemia; F41.1 Generalized anxiety disorder; G47.00 Insomnia, unspecified; G25.81 Restless legs syndrome; Z90.49 Acquired absence of other specified parts of digestive tract; Z79.899 Other long term (current) drug therapy; Z88.0 Allergy status to penicillin

== ENCOUNTER → 2018-05-27 | Outpatient (REF) | payer BC ==
[~2018-05-27] MED LIST changes: -ACETAMINOPHEN 500 MG TAB PO ONE; +HYDR-3713 PO; -LR 1,000 ML IV ONE; +MUPI2OI; +XARE10TA PO
[2018-05-27 10:54] LABS: BASO % 0.7 % (0.0-1.0); HEMATOCRIT 34.9 % (36.0-47.0); LYMPH # 1.4 10^3/uL (1.5-4.5); LYMPH % 22.7 % (24.0-44.0); MEAN CORPUSCULAR HEMOGLOBIN 29.9 pg (27.0-33.0); MEAN CORPUSCULAR HGB CONC 31.5 g/dl (32.0-36.5); MEAN CORPUSCULAR VOLUME 94.8 fl (80.0-96.0); MONO # 0.5 10^3/uL (0.0-0.8); MONO % 7.4 % (0.0-5.0); NEUTROPHILS # 4.2 10^3/uL (1.8-7.7); NEUTROPHILS % 68.4 % (36.0-66.0); PLATELET COUNT, AUTOMATED 670 10^3/uL (150-450); RED BLOOD COUNT 3.68 10^6/uL (4.00-5.40); WHITE BLOOD COUNT 6.1 10^3/uL (4.0-10.0)
[2018-05-27 11:00] LABS: PERCENT SATURATION 19.7 % (13.2-45.0)
== END ==
LOC: M LABDRAW1 09:06
PROVIDERS: ATTEND Physician Assistant
DX: D64.9 Anemia, unspecified (principal)

== ENCOUNTER → 2018-06-27 | Outpatient (REF) | payer BC ==
[2018-06-27 14:16] LABS: BASO % 0.6 % (0.0-1.0); HEMATOCRIT 36.5 % (36.0-47.0); HEMOGLOBIN 11.4 g/dl (12.0-15.5); LYMPH # 1.3 10^3/uL (1.5-4.5); LYMPH % 27.3 % (24.0-44.0); MEAN CORPUSCULAR HEMOGLOBIN 29.7 pg (27.0-33.0); MEAN CORPUSCULAR HGB CONC 31.2 g/dl (32.0-36.5); MEAN CORPUSCULAR VOLUME 95.1 fl (80.0-96.0); MONO # 0.4 10^3/uL (0.0-0.8); MONO % 8.2 % (0.0-5.0); NEUTROPHILS % 63.7 % (36.0-66.0); PLATELET COUNT, AUTOMATED 363 10^3/uL (150-450); RED BLOOD COUNT 3.84 10^6/uL (4.00-5.40); WHITE BLOOD COUNT 4.8 10^3/uL (4.0-10.0)
== END ==
LOC: M LABNEURO 11:08
PROVIDERS: ATTEND Family Medicine
DX: D64.9 Anemia, unspecified (principal)

== ENCOUNTER 2018-08-28 08:38 | Day surgery (SDC) | payer BC ==
[~2018-08-28] VITALS: Ht 175.3 cm; Wt 91.6 kg
[~2018-08-28 08:38] MED LIST changes: +COQ-100C5 PO; +CRES20TA2 PO; +DOXY-350 PO; +MUCI600T31 PO; +NS 1,000 ML IV ONE; +PRED20TA PO; +VITA100014 PO
[2018-08-28] MEDS ORDERED: PROPOFOL 500 MG/50 ML VIAL As Ordered ONE (10:26)
[2018-08-28] MEDS ORDERED: LIDOCAINE 2% INJ 100 MG/5 ML SDV (FOR ANES.) As Ordered ONE (10:26)
--- NOTE | 2018-08-28 10:50 | ROOR ---
Patient Name: Ayla Canales Procedure Date: 08/28/2018 10:20 AM Date of : 1955 Age: 62 Room: [facility] Gender: Female Note Status: Finalized Procedure: Colonoscopy Indications: Screening for colorectal malignant neoplasm Providers: Robin Blanco Jr, MD Referring MD: Lauren BRINK DO Requesting Provider: Medicines: Propofol per Anesthesia Complications: No immediate complications. Procedure: Pre-Anesthesia Assessment: - Prior to the procedure, a History and Physical was performed, and patient medications and allergies were reviewed. The patient is competent. The risks and benefits of the procedure and the sedation options and risks were discussed with the patient. All questions were answered and informed consent was obtained. Patient identification and proposed procedure were verified by the physician and the nurse in the pre-procedure area and in the procedure room. Mental Status Examination: alert and oriented. Airway Examination: normal oropharyngeal airway and neck mobility. Respiratory Examination: clear to auscultation. CV Examination: normal. ASA Grade Assessment: II - A patient with mild systemic disease. After reviewing the risks and benefits, the patient was deemed in satisfactory condition to undergo the procedure. The anesthesia plan was to use moderate sedation / analgesia (conscious sedation). Immediately prior to administration of medications, the patient was re-assessed for adequacy to receive sedatives. The heart rate, respiratory rate, oxygen saturations, blood pressure, adequacy of pulmonary ventilation, and response to care were monitored throughout the procedure. The physical status of the patient was re-assessed after the procedure. The Colonoscope was introduced through the anus and advanced to the cecum, identified by appendiceal orifice and ileocecal valve. The colonoscopy was performed without difficulty. The patient tolerated the procedure well. The quality of the bowel preparation was adequate. Findings: The rectum, sigmoid colon, descending colon, transverse colon, cecum, appendiceal orifice and ileocecal valve appeared normal. Two polyps were found in the recto-sigmoid colon and ascending colon. The polyps were small in size. These polyps were removed with a cold snare. Resection and retrieval were complete. Impression: - The rectum, sigmoid colon, descending colon, transverse colon, cecum, appendiceal orifice and ileocecal valve are normal. - Two small polyps at the recto-sigmoid colon and in the ascending colon, removed with a cold snare. Resected and retrieved. Recommendation: - Discharge patient to home (ambulatory). - Repeat colonoscopy in 5 years for surveillance. Robin Blanco MD Robin Blanco Jr, MD 08/28/2018 10:50:12 AM Electronically signed by Robin Blanco Jr, MD Number of Addenda: 0 Note Initiated On: 08/28/2018 10:20 AM Estimated Blood Loss: Estimated blood loss: none.
[2018-08-28 11:05] VITALS: BP 130/69
== END 2018-08-28 11:16 | disposition home or self-care (01) ==
LOC: M OPP 08:38
PROVIDERS: ATTEND Surgery
DX: D12.2 Benign neoplasm of ascending colon (principal); D12.7 Benign neoplasm of rectosigmoid junction; Z12.11 Encounter for screening for malignant neoplasm of colon

== ENCOUNTER → 2018-09-26 | Outpatient (REF) | payer BC ==
[~2018-09-26] MED LIST changes: -NS 1,000 ML IV ONE
[2018-09-26 13:50] LABS: ALT/SGPT 19 U/L (12-78); BILIRUBIN,TOTAL 0.4 MG/DL (0.2-1.0); BLOOD UREA NITROGEN 15 MG/DL (7-18); CALCIUM LEVEL 9.1 MG/DL (8.8-10.2); CARBON DIOXIDE LEVEL 27 MEQ/L (21-32); CHLORIDE LEVEL 107 MEQ/L (98-107); CHOLESTEROL LEVEL 194 MG/DL (<200); CHOLESTEROL RISK RATIO 2.519 (<5); CREATININE FOR GFR 0.71 MG/DL (0.55-1.30); GLOMERULAR FILTRATION RATE > 60.0 (>45); GLUCOSE, FASTING 89 MG/DL (70-100); HDL CHOLESTEROL 77 MG/DL (>40); LDL CHOLESTEROL 97 MG/DL (<100); NON-HDL-C 117 MG/DL; POTASSIUM SERUM 4.3 MEQ/L (3.5-5.1); SODIUM LEVEL 143 MEQ/L (136-145); TOTAL PROTEIN 6.8 GM/DL (6.4-8.2); TRIGLYCERIDES LEVEL 99 MG/DL (<150)
[2018-09-26 13:57] LABS: VITAMIN B12 LEVEL 730 PG/ML
[2018-09-26 14:04] LABS: FOLATE 23.9 NG/ML
== END ==
LOC: M LABNEURO 08:09
PROVIDERS: ATTEND Family Medicine
DX: D64.9 Anemia, unspecified (principal); I10 Essential (primary) hypertension; E78.2 Mixed hyperlipidemia

== ENCOUNTER → 2019-01-02 | Outpatient (REF) | payer BC ==
[~2019-01-02] MED LIST changes: +CYAN100050 PO; -VITA100014 PO
[2019-01-02 10:47] LABS: BASO % 0.5 % (0.0-1.0); HEMATOCRIT 39.3 % (36.0-47.0); HEMOGLOBIN 12.7 g/dl (12.0-15.5); LYMPH # 1.4 10^3/uL (1.5-5.0); LYMPH % 24.5 % (24.0-44.0); MEAN CORPUSCULAR HEMOGLOBIN 31.5 pg (27.0-33.0); MEAN CORPUSCULAR HGB CONC 32.3 g/dl (32.0-36.5); MEAN CORPUSCULAR VOLUME 97.5 fl (80.0-96.0); MONO # 0.5 10^3/uL (0.0-0.8); MONO % 8.2 % (0.0-5.0); NEUTROPHILS # 3.7 10^3/uL (1.5-8.5); NEUTROPHILS % 66.4 % (36.0-66.0); PLATELET COUNT, AUTOMATED 280 10^3/uL (150-450); RED BLOOD COUNT 4.03 10^6/uL (4.00-5.40); WHITE BLOOD COUNT 5.5 10^3/uL (4.0-10.0)
[2019-01-02 11:14] LABS: BLOOD UREA NITROGEN 16 MG/DL (7-18); CALCIUM LEVEL 8.9 MG/DL (8.8-10.2); CARBON DIOXIDE LEVEL 27 MEQ/L (21-32); CHLORIDE LEVEL 106 MEQ/L (98-107); CREATININE FOR GFR 0.74 MG/DL (0.55-1.30); GLOMERULAR FILTRATION RATE > 60.0 (>45); GLUCOSE, FASTING 91 MG/DL (70-100); POTASSIUM SERUM 4.4 MEQ/L (3.5-5.1); SODIUM LEVEL 141 MEQ/L (136-145)
[2019-01-02 11:25] LABS: FOLATE 22.1 NG/ML; VITAMIN B12 LEVEL 427 PG/ML
== END ==
LOC: M LABDRAW1 10:04
PROVIDERS: ATTEND Physician Assistant
DX: D64.9 Anemia, unspecified (principal); I10 Essential (primary) hypertension

== ENCOUNTER → 2019-04-20 | Outpatient (REF) | payer BC ==
[~2019-04-20] MED LIST changes: -SIMV40TA2 PO; +SIMV40TA20 PO
[2019-04-20 12:43] LABS: ALBUMIN 3.8 GM/DL (3.2-5.2); ALT/SGPT 21 U/L (12-78); BILIRUBIN,TOTAL 0.4 MG/DL (0.2-1.0); BLOOD UREA NITROGEN 19 MG/DL (7-18); CALCIUM LEVEL 8.6 MG/DL (8.8-10.2); CARBON DIOXIDE LEVEL 25 MEQ/L (21-32); CHLORIDE LEVEL 110 MEQ/L (98-107); CHOLESTEROL LEVEL 174 MG/DL (<200); CHOLESTEROL RISK RATIO 2.259 (<5); CREATININE FOR GFR 0.74 MG/DL (0.55-1.30); FREE T4 0.85 NG/DL (0.76-1.46); GLOMERULAR FILTRATION RATE > 60.0 (>45); GLUCOSE, FASTING 98 MG/DL (70-100); HDL CHOLESTEROL 77 MG/DL (>40); LDL CHOLESTEROL 83 MG/DL (<100); NON-HDL-C 97 MG/DL; POTASSIUM SERUM 4.2 MEQ/L (3.5-5.1); SODIUM LEVEL 141 MEQ/L (136-145); TOTAL PROTEIN 6.5 GM/DL (6.4-8.2); TRIGLYCERIDES LEVEL 72 MG/DL (<150)
== END ==
LOC: M LABDRAW1 11:36
PROVIDERS: ATTEND Physician Assistant
DX: Z00.00 Encounter for general adult medical examination without abnormal findings (principal)

== ENCOUNTER → 2019-08-18 | Outpatient (REF) | payer BC ==
[2019-08-18 13:03] LABS: BASO % 0.7 % (0.0-1.0); HEMATOCRIT 39.4 % (36.0-47.0); HEMOGLOBIN 12.9 g/dl (12.0-15.5); MEAN CORPUSCULAR HEMOGLOBIN 31.9 pg (27.0-33.0); MEAN CORPUSCULAR HGB CONC 32.7 g/dl (32.0-36.5); MEAN CORPUSCULAR VOLUME 97.3 fl (80.0-96.0); MONO # 0.6 10^3/uL (0.0-0.8); MONO % 9.7 % (0.0-5.0); NEUTROPHILS # 3.2 10^3/uL (1.5-8.5); NEUTROPHILS % 55.4 % (36.0-66.0); PLATELET COUNT, AUTOMATED 290 10^3/uL (150-450); RED BLOOD COUNT 4.05 10^6/uL (4.00-5.40); WHITE BLOOD COUNT 5.8 10^3/uL (4.0-10.0)
[2019-08-18 13:18] LABS: ALBUMIN 3.9 GM/DL (3.2-5.2); ALT/SGPT 23 U/L (12-78); BILIRUBIN,TOTAL 0.5 MG/DL (0.2-1.0); BLOOD UREA NITROGEN 14 MG/DL (7-18); CALCIUM LEVEL 9.3 MG/DL (8.8-10.2); CARBON DIOXIDE LEVEL 26 MEQ/L (21-32); CHLORIDE LEVEL 107 MEQ/L (98-107); CHOLESTEROL LEVEL 177 MG/DL (<200); CREATININE FOR GFR 0.69 MG/DL (0.55-1.30); GLOMERULAR FILTRATION RATE > 60.0 (>45); GLUCOSE, FASTING 92 MG/DL (70-100); HDL CHOLESTEROL 75 MG/DL (>40); LDL CHOLESTEROL 85 MG/DL (<100); NON-HDL-C 102 MG/DL; POTASSIUM SERUM 4.7 MEQ/L (3.5-5.1); SODIUM LEVEL 139 MEQ/L (136-145); TOTAL PROTEIN 6.9 GM/DL (6.4-8.2); TRIGLYCERIDES LEVEL 84 MG/DL (<150)
[2019-08-18 13:20] LABS: VITAMIN B12 LEVEL 1074 PG/ML (247-911)
== END ==
LOC: M LABDRWAD 12:33
PROVIDERS: ATTEND Family Medicine
DX: I10 Essential (primary) hypertension (principal); E78.2 Mixed hyperlipidemia; D64.9 Anemia, unspecified

== ENCOUNTER → 2020-02-10 | Outpatient (REF) | payer BC ==
[~2020-02-10] MED LIST changes: +ACET650T61 PO; -TYLE650T35 PO
[2020-02-10 12:40] LABS: BASO % 0.7 % (0.0-1.0); HEMATOCRIT 38.7 % (36.0-47.0); HEMOGLOBIN 12.1 g/dl (12.0-15.5); LYMPH # 1.6 10^3/uL (1.5-5.0); LYMPH % 34.1 % (24.0-44.0); MEAN CORPUSCULAR HEMOGLOBIN 30.9 pg (27.0-33.0); MEAN CORPUSCULAR HGB CONC 31.3 g/dl (32.0-36.5); MEAN CORPUSCULAR VOLUME 98.7 fl (80.0-96.0); MONO # 0.4 10^3/uL (0.0-0.8); MONO % 7.8 % (0.0-5.0); NEUTROPHILS # 2.6 10^3/uL (1.5-8.5); NEUTROPHILS % 57.2 % (36.0-66.0); PLATELET COUNT, AUTOMATED 284 10^3/uL (150-450); RED BLOOD COUNT 3.92 10^6/uL (4.00-5.40); WHITE BLOOD COUNT 4.6 10^3/uL (4.0-10.0)
[2020-02-10 13:18] LABS: ALBUMIN 3.8 GM/DL (3.2-5.2); ALT/SGPT 16 U/L (12-78); BILIRUBIN,TOTAL 0.4 MG/DL (0.2-1.0); BLOOD UREA NITROGEN 22 MG/DL (7-18); CALCIUM LEVEL 8.9 MG/DL (8.8-10.2); CARBON DIOXIDE LEVEL 26 MEQ/L (21-32); CHLORIDE LEVEL 109 MEQ/L (98-107); CHOLESTEROL LEVEL 188 MG/DL (<200); CHOLESTEROL RISK RATIO 2.764 (<5); CREATININE FOR GFR 0.65 MG/DL (0.55-1.30); FREE T4 0.77 NG/DL (0.76-1.46); GLOMERULAR FILTRATION RATE > 60.0 (>45); GLUCOSE, FASTING 92 MG/DL (70-100); HDL CHOLESTEROL 68 MG/DL (>40); LDL CHOLESTEROL 104 MG/DL (<100); NON-HDL-C 120 MG/DL; POTASSIUM SERUM 4.1 MEQ/L (3.5-5.1); SODIUM LEVEL 140 MEQ/L (136-145); TOTAL PROTEIN 6.7 GM/DL (6.4-8.2); TRIGLYCERIDES LEVEL 82 MG/DL (<150); VITAMIN B12 LEVEL 535 PG/ML
== END ==
LOC: M LABDRWAD 12:11
PROVIDERS: ATTEND Pediatrics
DX: I10 Essential (primary) hypertension (principal); E78.2 Mixed hyperlipidemia; D64.9 Anemia, unspecified

== ENCOUNTER → 2020-03-03 | Outpatient (CLI) | payer BC ==
--- NOTE | 2020-03-07 11:47 | ECHO ---
DATE OF PROCEDURE: 03/03/2020 Age: 64 Gender: Female Height: 69 inches Weight: 186 pounds REFERRING PHYSICIAN: Lauren Jo DO INDICATION: Cardiac murmur, unspecified. MEASUREMENTS: 2D Measurements: Left atrium 3.9 cm Left ventricle diastole 4.6 cm Interventricular septum 0.93 cm Posterior wall 0.93 cm Aortic root 3.0 cm Inferior vena cava 1.4 cm with more than 50% respiratory variation Doppler Measurements: No aortic regurgitation No aortic stenosis Mild mitral regurgitation No mitral stenosis Aortic valve velocity 120 cm/s LVOT velocity 117 cm/s LVOT VTI 26.8 cm Mitral E velocity 82.4 cm/s Mitral A velocity 83.4 cm/s Mitral deceleration time 236 msec Very mild tricuspid regurgitation Estimated right ventricle systolic pressure 24-29 mmHg Estimated right atrial pressure of 5-10 mmHg No pulmonic regurgitation Pulmonary artery systolic pressure 21 mmHg MITRAL ANNULAR TISSUE DOPPLER E prime septal 6.5 cm/s, E prime lateral 11.6 cm/s DESCRIPTION: Rhythm was sinus. Image quality was adequate. No pericardial effusion. This was a 2D, M-mode, color flow Doppler, and pulsed wave Doppler examination including mitral annular tissue Doppler. CONCLUSIONS: 1. Mild mitral valve regurgitation. Structurally normal appearing mitral leaflets. No mitral valve prolapse. 2. Normal left ventricle internal dimensions and wall thickness. Normal regional left ventricular (LV) wall motion and wall thickening. Normal left ventricular (LV) systolic function. Left ventricular ejection fraction (LVEF) of 65% by visual estimate. Left ventricular (LV) diastolic function within normal limits for age. 3. Mild left atrial dilatation. 4. Otherwise normal appearing echocardiogram Doppler findings. MTDD
== END ==
LOC: M CARPUL 09:13
PROVIDERS: ATTEND Family Medicine
DX: R01.1 Cardiac murmur, unspecified (principal); I08.0 Rheumatic disorders of both mitral and aortic valves

== ENCOUNTER → 2020-06-07 | Outpatient (CLI) | payer BC ==
[~2020-06-07] MED LIST changes: +LISI10TA22 PO; -LISI10TA4 PO
--- NOTE | 2020-06-07 08:19 | REP ---
INDICATION: AAA COMPARISON: None. TECHNIQUE: Real time barrera scale ultrasound examination using curved array transducer. FINDINGS: The abdominal aorta is normal by sonographic evaluation without significant atherosclerotic changes and no evidence for aneurysm. Proximal aorta: 2.1 x 2.3 cm Aorta and renal arteries: 1.8 x 2.0 cm Mid aorta: 1.5 x 1.6 cm Distal aorta: 1.7 x 1.7 cm Right common iliac artery: 1.1 x 1.0 cm Left common iliac artery: 1.0 x 0.9 cm IMPRESSION: Normal abdominal aorta. No aneurysm. <Electronically signed by Jony Ceja > 06/07/20 0815
== END ==
LOC: M RAD 07:49
PROVIDERS: ATTEND Internal Medicine Cardiovascular Disease
DX: Z13.6 Encounter for screening for cardiovascular disorders (principal)

== ENCOUNTER → 2020-08-16 | Outpatient (REF) | payer BC ==
[2020-08-16 12:52] LABS: BASO % 0.6 % (0.0-1.0); HEMATOCRIT 41.7 % (36.0-47.0); HEMOGLOBIN 13.3 g/dl (12.0-15.5); LYMPH # 1.4 10^3/uL (1.5-5.0); LYMPH % 31.1 % (24.0-44.0); MEAN CORPUSCULAR HGB CONC 31.9 g/dl (32.0-36.5); MEAN CORPUSCULAR VOLUME 97.2 fl (80.0-96.0); MONO # 0.5 10^3/uL (0.0-0.8); MONO % 9.9 % (2.0-8.0); NEUTROPHILS # 2.7 10^3/uL (1.5-8.5); NEUTROPHILS % 58.2 % (36.0-66.0); PLATELET COUNT, AUTOMATED 310 10^3/uL (150-450); RED BLOOD COUNT 4.29 10^6/uL (4.00-5.40); WHITE BLOOD COUNT 4.6 10^3/uL (4.0-10.0)
[2020-08-16 13:32] LABS: ALBUMIN 3.7 GM/DL (3.2-5.2); ALT/SGPT 21 U/L (12-78); BILIRUBIN,TOTAL 0.3 MG/DL (0.2-1.0); BLOOD UREA NITROGEN 16 MG/DL (7-18); CALCIUM LEVEL 8.9 MG/DL (8.8-10.2); CARBON DIOXIDE LEVEL 32 MEQ/L (21-32); CHLORIDE LEVEL 106 MEQ/L (98-107); CHOLESTEROL LEVEL 176 MG/DL (<200); CHOLESTEROL RISK RATIO 2.478 (<5); CREATININE FOR GFR 0.63 MG/DL (0.55-1.30); FOLATE > 24.0 NG/ML; FREE T4 0.74 NG/DL (0.76-1.46); GLOMERULAR FILTRATION RATE > 60.0 (>45); GLUCOSE, FASTING 92 MG/DL (70-100); HDL CHOLESTEROL 71 MG/DL (>40); LDL CHOLESTEROL 90 MG/DL (<100); NON-HDL-C 105 MG/DL; POTASSIUM SERUM 4.9 MEQ/L (3.5-5.1); SODIUM LEVEL 139 MEQ/L (136-145); TOTAL PROTEIN 6.7 GM/DL (6.4-8.2); TRIGLYCERIDES LEVEL 73 MG/DL (<150); VITAMIN B12 LEVEL 687 PG/ML
== END ==
LOC: M LABDRWAD 12:29
PROVIDERS: ATTEND Physician Assistant
DX: I10 Essential (primary) hypertension (principal); E78.2 Mixed hyperlipidemia; D64.9 Anemia, unspecified

== ENCOUNTER → 2021-02-20 | Outpatient (REF) | payer BC ==
[2021-02-20 12:48] LABS: BASO % 0.4 % (0.0-1.0); EOS % 0.2 % (0.0-3.0); HEMATOCRIT 39.6 % (36.0-47.0); HEMOGLOBIN 12.5 g/dl (12.0-15.5); LYMPH # 1.6 10^3/uL (1.5-5.0); LYMPH % 34.9 % (24.0-44.0); MEAN CORPUSCULAR HEMOGLOBIN 30.5 pg (27.0-33.0); MEAN CORPUSCULAR HGB CONC 31.6 g/dl (32.0-36.5); MEAN CORPUSCULAR VOLUME 96.6 fl (80.0-96.0); MONO # 0.4 10^3/uL (0.0-0.8); MONO % 9.3 % (2.0-8.0); NEUTROPHILS # 2.5 10^3/uL (1.5-8.5); NEUTROPHILS % 55.2 % (36.0-66.0); PLATELET COUNT, AUTOMATED 271 10^3/uL (150-450); WHITE BLOOD COUNT 4.5 10^3/uL (4.0-10.0)
[2021-02-20 13:15] LABS: ALBUMIN 3.6 GM/DL (3.2-5.2); ALT/SGPT 23 U/L (12-78); BILIRUBIN,TOTAL 0.4 MG/DL (0.2-1.0); BLOOD UREA NITROGEN 17 MG/DL (7-18); CALCIUM LEVEL 9.2 MG/DL (8.8-10.2); CARBON DIOXIDE LEVEL 29 MEQ/L (21-32); CHLORIDE LEVEL 108 MEQ/L (98-107); CHOLESTEROL LEVEL 202 MG/DL (<200); CHOLESTEROL RISK RATIO 2.767 (<5); CREATININE FOR GFR 0.74 MG/DL (0.55-1.30); FREE T4 0.83 NG/DL (0.76-1.46); GLOMERULAR FILTRATION RATE > 60.0 (>45); GLUCOSE, FASTING 96 MG/DL (70-100); HDL CHOLESTEROL 73 MG/DL (>40); IRON (FE) 85 UG/DL (50-170); LDL CHOLESTEROL 108 MG/DL (<100); NON-HDL-C 129 MG/DL; PERCENT SATURATION 28.3 % (13.2-45.0); POTASSIUM SERUM 4.7 MEQ/L (3.5-5.1); SODIUM LEVEL 141 MEQ/L (136-145); TOTAL IRON BINDING CAPACITY 300 UG/DL (250-450); TOTAL PROTEIN 6.3 GM/DL (6.4-8.2); TRIGLYCERIDES LEVEL 107 MG/DL (<150)
[2021-02-20 13:18] LABS: VITAMIN B12 LEVEL 740 PG/ML
[2021-02-20 13:19] LABS: FOLATE 15.4 NG/ML
== END ==
LOC: M LABDRWAD 12:14
PROVIDERS: ATTEND Physician Assistant
DX: E66.3 Overweight (principal); I10 Essential (primary) hypertension; D64.9 Anemia, unspecified

== ENCOUNTER → 2021-05-30 | Outpatient (REF) | payer BC ==
[2021-05-30 13:05] LABS: BASO % 0.8 % (0.0-1.0); HEMATOCRIT 40.9 % (36.0-47.0); HEMOGLOBIN 13.3 g/dl (12.0-15.5); LYMPH # 1.5 10^3/uL (1.5-5.0); LYMPH % 31.4 % (24.0-44.0); MEAN CORPUSCULAR HEMOGLOBIN 31.3 pg (27.0-33.0); MEAN CORPUSCULAR HGB CONC 32.5 g/dl (32.0-36.5); MEAN CORPUSCULAR VOLUME 96.2 fl (80.0-96.0); MONO # 0.4 10^3/uL (0.0-0.8); MONO % 8.8 % (2.0-8.0); NEUTROPHILS # 2.9 10^3/uL (1.5-8.5); NEUTROPHILS % 58.8 % (36.0-66.0); PLATELET COUNT, AUTOMATED 275 10^3/uL (150-450); RED BLOOD COUNT 4.25 10^6/uL (4.00-5.40); WHITE BLOOD COUNT 4.9 10^3/uL (4.0-10.0)
[2021-05-30 13:29] LABS: ALBUMIN 3.9 GM/DL (3.2-5.2); ALT/SGPT 20 U/L (12-78); BILIRUBIN,TOTAL 0.3 MG/DL (0.2-1.0); BLOOD UREA NITROGEN 24 MG/DL (7-18); CALCIUM LEVEL 9.1 MG/DL (8.8-10.2); CARBON DIOXIDE LEVEL 28 MEQ/L (21-32); CHLORIDE LEVEL 108 MEQ/L (98-107); CHOLESTEROL LEVEL 190 MG/DL (<200); CHOLESTEROL RISK RATIO 2.714 (<5); CREATININE FOR GFR 0.76 MG/DL (0.55-1.30); GLOMERULAR FILTRATION RATE > 60.0 (>45); GLUCOSE, FASTING 111 MG/DL (70-100); HDL CHOLESTEROL 70 MG/DL (>40); LDL CHOLESTEROL 96 MG/DL (<100); NON-HDL-C 120 MG/DL; POTASSIUM SERUM 4.8 MEQ/L (3.5-5.1); SODIUM LEVEL 142 MEQ/L (136-145); TOTAL PROTEIN 6.8 GM/DL (6.4-8.2); TRIGLYCERIDES LEVEL 119 MG/DL (<150)
== END ==
LOC: M LAB REF 12:41 → M LABDRWAD 12:41
PROVIDERS: ATTEND Family Medicine
DX: E78.2 Mixed hyperlipidemia (principal)

== ENCOUNTER → 2021-12-11 | Outpatient (CLI) | payer BC ==
[2021-12-11 14:19] LABS: BASO % 0.4 % (0.0-1.0); HEMATOCRIT 36.9 % (36.0-47.0); LYMPH # 1.5 10^3/uL (1.5-5.0); LYMPH % 27.2 % (24.0-44.0); MEAN CORPUSCULAR HEMOGLOBIN 31.2 pg (27.0-33.0); MEAN CORPUSCULAR HGB CONC 32.5 g/dl (32.0-36.5); MEAN CORPUSCULAR VOLUME 95.8 fl (80.0-96.0); MONO # 0.5 10^3/uL (0.0-0.8); MONO % 8.7 % (2.0-8.0); NEUTROPHILS # 3.4 10^3/uL (1.5-8.5); NEUTROPHILS % 63.5 % (36.0-66.0); PLATELET COUNT, AUTOMATED 259 10^3/uL (150-450); RED BLOOD COUNT 3.85 10^6/uL (4.00-5.40); WHITE BLOOD COUNT 5.4 10^3/uL (4.0-10.0)
[2021-12-11 15:14] LABS: ALBUMIN 3.7 GM/DL (3.2-5.2); ALT/SGPT 18 U/L (12-78); BILIRUBIN,TOTAL 0.5 MG/DL (0.2-1.0); BLOOD UREA NITROGEN 20 MG/DL (7-18); CALCIUM LEVEL 8.7 MG/DL (8.8-10.2); CARBON DIOXIDE LEVEL 22 MEQ/L (21-32); CHLORIDE LEVEL 110 MEQ/L (98-107); CHOLESTEROL LEVEL 183 MG/DL (<200); CHOLESTEROL RISK RATIO 2.506 (<5); CREATININE FOR GFR 0.78 MG/DL (0.55-1.30); FREE T4 0.82 NG/DL (0.76-1.46); GLOMERULAR FILTRATION RATE > 60.0 (>45); GLUCOSE, FASTING 94 MG/DL (70-100); HDL CHOLESTEROL 73 MG/DL (>40); LDL CHOLESTEROL 93 MG/DL (<100); NON-HDL-C 110 MG/DL; POTASSIUM SERUM 4.1 MEQ/L (3.5-5.1); SODIUM LEVEL 140 MEQ/L (136-145); TOTAL PROTEIN 6.3 GM/DL (6.4-8.2); TRIGLYCERIDES LEVEL 84 MG/DL (<150)
[2021-12-11 15:32] LABS: TOTAL 25(OH) VITAMIN D 29.3 NG/ML (30.0-100.0); VITAMIN B12 LEVEL 840 PG/ML
== END ==
LOC: M ADAMS 08:08
PROVIDERS: ATTEND Nurse Practitioner Adult Health
DX: E78.2 Mixed hyperlipidemia (principal); I10 Essential (primary) hypertension; E66.9 Obesity, unspecified; D64.9 Anemia, unspecified

== ENCOUNTER → 2022-09-24 | Outpatient (REF) | payer BC ==
[~2022-09-24] MED LIST changes: +CYAN-1 PO; -CYAN100050 PO; -DOXY-350 PO; +DOXY-444 PO
[2022-09-24 14:32] LABS: BASO % 0.6 % (0.0-1.0); EOS % 0.8 % (0.0-3.0); HEMATOCRIT 38.6 % (36.0-47.0); HEMOGLOBIN 12.3 g/dl (12.0-15.5); LYMPH # 1.5 10^3/uL (1.5-5.0); LYMPH % 29.6 % (24.0-44.0); MEAN CORPUSCULAR HEMOGLOBIN 30.9 pg (27.0-33.0); MEAN CORPUSCULAR HGB CONC 31.9 g/dl (32.0-36.5); MONO # 0.5 10^3/uL (0.0-0.8); MONO % 9.7 % (2.0-8.0); NEUTROPHILS # 2.9 10^3/uL (1.5-8.5); NEUTROPHILS % 59.1 % (36.0-66.0); PLATELET COUNT, AUTOMATED 281 10^3/uL (150-450); RED BLOOD COUNT 3.98 10^6/uL (4.00-5.40)
[2022-09-24 15:22] LABS: IRON (FE) 62 UG/DL (50-170); PERCENT SATURATION 21.8 % (13.2-45.0); TOTAL IRON BINDING CAPACITY 284 UG/DL (250-425)
[2022-09-24 15:23] LABS: ALBUMIN 3.8 G/DL (3.2-5.2); ALKALINE PHOSPHATASE 64 U/L (46-116); ALT/SGPT 21 U/L (7.0-40); AST/SGOT 13 U/L (<34); BILIRUBIN,TOTAL 0.5 MG/DL (0.3-1.2); BLOOD UREA NITROGEN 27 MG/DL (9-23); CALCIUM LEVEL 8.1 MG/DL (8.3-10.6); CARBON DIOXIDE LEVEL 27 MMOL/L (20-31); CHLORIDE LEVEL 109 MMOL/L (98-107); CHOLESTEROL LEVEL 171 MG/DL (<200); CHOLESTEROL RISK RATIO 2.48 (<5); CREATININE FOR GFR 0.76 MG/DL (0.55-1.30); GLOMERULAR FILTRATION RATE > 60.0 (>45); GLUCOSE, FASTING 100 MG/DL (74-106); HDL CHOLESTEROL 68.9 MG/DL (>40); LDL CHOLESTEROL 85.1 MG/DL (<100); NON-HDL-C 102.1 MG/DL; POTASSIUM SERUM 4.4 MMOL/L (3.5-5.1); SODIUM LEVEL 143 MMOL/L (136-145); TOTAL PROTEIN 6.2 G/DL (5.7-8.2); TRIGLYCERIDES LEVEL 85 MG/DL (<150)
[2022-09-24 15:26] LABS: FOLATE 23.3 NG/ML (>5.4); TOTAL 25(OH) VITAMIN D 50.1 NG/ML (20.0-100.0); VITAMIN B12 LEVEL 1116 PG/ML (211-911)
[2022-09-24 15:27] LABS: FREE T4 0.85 NG/DL (0.89-1.76); THYROID STIMULATING HORMONE 3.222 uIU/ML (0.55-4.78)
== END ==
LOC: M LAB REF 13:09
PROVIDERS: ATTEND Nurse Practitioner Adult Health
DX: I10 Essential (primary) hypertension (principal); E78.2 Mixed hyperlipidemia; D64.9 Anemia, unspecified; E55.9 Vitamin D deficiency, unspecified

== ENCOUNTER → 2022-09-26 | Outpatient (CLI) | payer MEDICARE ==
[~2022-09-26] MED LIST changes: -CYAN-1 PO; +CYAN100050 PO
== END ==
LOC: M WHC 08:56
PROVIDERS: ATTEND Nurse Practitioner Adult Health
DX: Z12.31 Encounter for screening mammogram for malignant neoplasm of breast (principal)

== ENCOUNTER → 2022-10-03 | Outpatient (CLI) | payer MEDICARE | LOC: M RAD 11:31 | PROVIDERS: ATTEND Nurse Practitioner Adult Health | DX: R06.02 Shortness of breath (principal); R14.0 Abdominal distension (gaseous) ==

== ENCOUNTER 2022-12-27 12:10 | Day surgery (SDC) | payer MEDICARE ==
[~2022-12-27] VITALS: Ht 175.3 cm; Wt 89.8 kg
[~2022-12-27 12:10] MED LIST changes: +CALTAB PO; +CYAN-1 PO; -CYAN100050 PO; +D-3-50003 PO; +HYDR12.55 PO; +MELATAB3 PO; +MIRA3350 PO; +NASA1SPR; +NS 1,000 ML IV ONE; +PROBCAP14 PO; +ROSU20TA61 PO; +STOO100C25 PO; +TURM500C PO; +ZOLO100T PO
[2022-12-27] MEDS ORDERED: LIDOCAINE 2% 100MG/5ML SDV (FOR ANES.) As Ordered ONE (13:21)
[2022-12-27] MEDS ORDERED: propofoL 200 MG/20 ML VIAL As Ordered ONE (13:21)
[2022-12-27 13:35] VITALS: TEMP 97.9
[2022-12-27 13:46] VITALS: BP 160/75; O2SAT 96
== END 2022-12-27 13:55 | disposition home or self-care (01) ==
LOC: M OPP 12:10
PROVIDERS: ATTEND Surgery
DX: Z86.010 Personal history of colon polyps (principal); K57.30 Diverticulosis of large intestine without perforation or abscess without bleeding; I10 Essential (primary) hypertension; E78.5 Hyperlipidemia, unspecified; K21.9 Gastro-esophageal reflux disease without esophagitis; M19.90 Unspecified osteoarthritis, unspecified site; F41.9 Anxiety disorder, unspecified; F32.A Depression, unspecified; Z96.643 Presence of artificial hip joint, bilateral; Z88.0 Allergy status to penicillin; Z88.5 Allergy status to narcotic agent; Z88.8 Allergy status to other drugs, medicaments and biological substances; Z79.899 Other long term (current) drug therapy

== ENCOUNTER → 2023-04-01 | Outpatient (CLI) | payer MEDICARE ==
[~2023-04-01] MED LIST changes: -NS 1,000 ML IV ONE
[2023-04-01 13:36] LABS: BASO % 0.7 % (0.0-1.0); EOS # 0.1 10^3/uL (0.0-0.5); EOS % 2.2 % (0.0-3.0); HEMATOCRIT 41.9 % (36.0-47.0); HEMOGLOBIN 13.5 g/dl (12.0-15.5); LYMPH # 1.7 10^3/uL (1.5-5.0); LYMPH % 28.8 % (24.0-44.0); MEAN CORPUSCULAR HGB CONC 32.2 g/dl (32.0-36.5); MEAN CORPUSCULAR VOLUME 96.1 fl (80.0-96.0); MONO # 0.6 10^3/uL (0.0-0.8); MONO % 10.2 % (2.0-8.0); NEUTROPHILS # 3.4 10^3/uL (1.5-8.5); NEUTROPHILS % 57.9 % (36.0-66.0); PLATELET COUNT, AUTOMATED 298 10^3/uL (150-450); RED BLOOD COUNT 4.36 10^6/uL (4.00-5.40); WHITE BLOOD COUNT 5.9 10^3/uL (4.0-10.0)
[2023-04-01 13:37] LABS: ALBUMIN 3.9 G/DL (3.2-5.2); ALKALINE PHOSPHATASE 68 U/L (46-116); ALT/SGPT 15 U/L (7.0-40); AST/SGOT 14 U/L (<34); BILIRUBIN,TOTAL 0.5 MG/DL (0.3-1.2); BLOOD UREA NITROGEN 15 MG/DL (9-23); CALCIUM LEVEL 9.6 MG/DL (8.3-10.6); CARBON DIOXIDE LEVEL 29 MMOL/L (20-31); CHLORIDE LEVEL 108 MMOL/L (98-107); CHOLESTEROL LEVEL 219 MG/DL (<200); CREATININE FOR GFR 0.86 MG/DL (0.55-1.30); GLOMERULAR FILTRATION RATE > 60.0 (>45); GLUCOSE, FASTING 99 MG/DL (74-106); HDL CHOLESTEROL 68.4 MG/DL (>40); LDL CHOLESTEROL 125.8 MG/DL (<100); NON-HDL-C 150.6 MG/DL; POTASSIUM SERUM 4.6 MMOL/L (3.5-5.1); SODIUM LEVEL 144 MMOL/L (136-145); TOTAL PROTEIN 6.5 G/DL (5.7-8.2); TRIGLYCERIDES LEVEL 124 MG/DL (<150)
[2023-04-01 13:40] LABS: TOTAL 25(OH) VITAMIN D 53.2 NG/ML (20.0-100.0)
[2023-04-01 13:41] LABS: THYROID STIMULATING HORMONE 4.535 uIU/ML (0.55-4.78)
[2023-04-01 13:44] LABS: FREE T4 0.93 NG/DL (0.89-1.76)
== END ==
LOC: M LABDRWAD 08:48
PROVIDERS: ATTEND Nurse Practitioner Adult Health
DX: E78.2 Mixed hyperlipidemia (principal); E55.9 Vitamin D deficiency, unspecified; D64.9 Anemia, unspecified; E66.9 Obesity, unspecified

== ENCOUNTER → 2023-07-03 | Outpatient (CLI) | payer MEDICARE ==
[~2023-07-03] MED LIST changes: +ISOVUE-370 76% 100ML VIAL As Ordered ONE
== END ==
LOC: M RAD 07:54
PROVIDERS: ATTEND Nurse Practitioner Adult Health
DX: D17.1 Benign lipomatous neoplasm of skin and subcutaneous tissue of trunk (principal)
CPT/HCPCS: 71260; Q9967

== ENCOUNTER → 2024-04-01 | Outpatient (REF) | payer MEDICARE ==
[~2024-04-01] MED LIST changes: +DOXY-440 PO; -DOXY-444 PO; -ISOVUE-370 76% 100ML VIAL As Ordered ONE; -ROSU20TA61 PO; +ROSU20TA86 PO
[2024-04-01 14:18] LABS: BASO # 0.1 10^3/uL (0.0-0.2); HEMATOCRIT 41.6 % (36.0-47.0); HEMOGLOBIN 13.1 g/dl (12.0-15.5); LYMPH # 1.6 10^3/uL (1.5-5.0); LYMPH % 27.8 % (24.0-44.0); MEAN CORPUSCULAR HEMOGLOBIN 30.6 pg (27.0-33.0); MEAN CORPUSCULAR HGB CONC 31.5 g/dl (32.0-36.5); MEAN CORPUSCULAR VOLUME 97.2 fl (80.0-96.0); MONO # 0.5 10^3/uL (0.0-0.8); MONO % 8.8 % (2.0-8.0); NEUTROPHILS # 3.7 10^3/uL (1.5-8.5); NEUTROPHILS % 62.2 % (36.0-66.0); PLATELET COUNT, AUTOMATED 300 10^3/uL (150-450); RED BLOOD COUNT 4.28 10^6/uL (4.00-5.40); WHITE BLOOD COUNT 5.9 10^3/uL (4.0-10.0)
[2024-04-01 14:28] LABS: ALBUMIN 3.8 G/DL (3.2-5.2); ALKALINE PHOSPHATASE 85 U/L (35-104); ALT/SGPT 15 U/L (7.0-40); AST/SGOT 14 U/L (<34); BILIRUBIN,TOTAL 0.5 MG/DL (0.3-1.2); BLOOD UREA NITROGEN 19 MG/DL (9-23); CALCIUM LEVEL 9.6 MG/DL (8.3-10.6); CARBON DIOXIDE LEVEL 28 MMOL/L (20-31); CHLORIDE LEVEL 107 MMOL/L (98-107); CHOLESTEROL LEVEL 216 MG/DL (<200); CHOLESTEROL RISK RATIO 2.75 (<5); CREATININE FOR GFR 0.74 MG/DL (0.55-1.30); GLOMERULAR FILTRATION RATE > 60.0 (>45); GLUCOSE, FASTING 98 MG/DL (74-106); HDL CHOLESTEROL 78.4 MG/DL (>40); LDL CHOLESTEROL 118.8 MG/DL (<100); NON-HDL-C 137.6 MG/DL; POTASSIUM SERUM 4.3 MMOL/L (3.5-5.1); SODIUM LEVEL 143 MMOL/L (136-145); TRIGLYCERIDES LEVEL 94 MG/DL (<150)
== END ==
LOC: M LABDRWAD 13:00
PROVIDERS: ATTEND Nurse Practitioner Adult Health
DX: E78.2 Mixed hyperlipidemia (principal)

== ENCOUNTER → 2024-11-26 | Outpatient (CLI) | payer MEDICARE | LOC: M WHC 09:03 | PROVIDERS: ATTEND Nurse Practitioner Adult Health | DX: Z12.31 Encounter for screening mammogram for malignant neoplasm of breast (principal); R92.343 Mammographic extreme density, bilateral breasts ==

== ENCOUNTER → 2025-03-23 | Outpatient (CLI) | payer MEDICARE ==
[~2025-03-23] MED LIST changes: -IBUP-1022 PO; +IBUP600T42 PO; -STOO100C25 PO; +STOO1CAP PO
== END ==
LOC: M PLAIMG 10:21
PROVIDERS: ATTEND Family Medicine
DX: R30.0 Dysuria (principal); N23 Unspecified renal colic; K44.9 Diaphragmatic hernia without obstruction or gangrene; N20.0 Calculus of kidney; M47.816 Spondylosis without myelopathy or radiculopathy, lumbar region; Z96.643 Presence of artificial hip joint, bilateral

== ENCOUNTER → 2025-04-05 | Outpatient (REF) | payer MEDICARE ==
[2025-04-05 13:48] LABS: BASO # 0.0 10^3/uL (0.0-0.2); BASO % 0.5 % (0.0-1.0); EOS # 0.0 10^3/uL (0.0-0.5); EOS % 0.0 % (0.0-3.0); LYMPH # 1.8 10^3/uL (1.5-5.0); LYMPH % 31.2 % (24.0-44.0); MONO # 0.4 10^3/uL (0.0-0.8); MONO % 7.6 % (2.0-8.0); NEUTROPHILS # 3.5 10^3/uL (1.5-8.5); NEUTROPHILS % 60.5 % (36.0-66.0); PLATELET COUNT, AUTOMATED 303 10^3/uL (150-450)
[2025-04-05 13:59] LABS: IRON (FE) 99 UG/DL (50-170); PERCENT SATURATION 31.2 % (13.2-45.0)
[2025-04-05 14:00] LABS: ALT/SGPT 44 U/L (7.0-40); AST/SGOT 34 U/L (<34); CALCIUM LEVEL 9.3 MG/DL (8.3-10.6); CARBON DIOXIDE LEVEL 28 MMOL/L (20-31); CHLORIDE LEVEL 106 MMOL/L (98-107); CHOLESTEROL LEVEL 203 MG/DL (<200); CHOLESTEROL RISK RATIO 2.94 (<5); CREATININE FOR GFR 0.77 MG/DL (0.55-1.30); FREE T4 1.05 NG/DL (0.89-1.76); GLOMERULAR FILTRATION RATE 84.0 (>45); LDL CHOLESTEROL 106.6 MG/DL (<100); NON-HDL-C 134.0 MG/DL; POTASSIUM SERUM 4.5 MMOL/L (3.5-5.1); SODIUM LEVEL 141 MMOL/L (136-145); TOTAL 25(OH) VITAMIN D 58.9 NG/ML (20.0-100.0); TRIGLYCERIDES LEVEL 137 MG/DL (<150); VITAMIN B12 LEVEL 791 PG/ML (211-911)
== END ==
LOC: M LABDRWAD 12:51
PROVIDERS: ATTEND Nurse Practitioner Adult Health
DX: E78.2 Mixed hyperlipidemia (principal); D64.9 Anemia, unspecified; I10 Essential (primary) hypertension; E55.9 Vitamin D deficiency, unspecified

== ENCOUNTER → 2025-04-12 | Outpatient (CLI) | payer MEDICARE | LOC: M PLAIMG 12:31 | PROVIDERS: ATTEND Nurse Practitioner Adult Health | DX: R10.A2 Flank pain, left side (principal) ==

== ENCOUNTER → 2025-04-13 | Outpatient (REF) | payer MEDICARE | LOC: M LAB REF 10:56 | PROVIDERS: ATTEND Nurse Practitioner Adult Health | DX: R19.5 Other fecal abnormalities (principal) ==